=== PATIENT | male | born 1970 | race Caucasian/White ===

== ENCOUNTER 2016-11-27 09:38 | Outpatient (CLI) | payer BC ==
[2016-11-27 10:41] LABS: eGFR (African) > 60; eGFR (Non-African) > 60
== END 2016-11-27 09:45 ==
LOC: LAB 09:38
PROVIDERS: ATTEND Family Medicine
DX: Z00.00 Encounter for general adult medical examination without abnormal findings (principal)
CPT/HCPCS: 36415; 80053; 80061